=== PATIENT | female | born 1950 | race Caucasian/White ===

== ENCOUNTER 2017-01-03 08:36 | Day surgery (SDC) | payer MEDICARE, OTHER ==
--- NOTE | ~2017-01-03 | EGD ---
EGD REPORT [facility] [address] [id number] NAME: DEANDRA GARCIA : [birth year] STATUS : REG [facility]#: [id number] AGE: 66 ADM/REG DATE : 01/03/17 MR#: [id number] REPORT SERV DATE: 01/03/17 DICTATED BY: CITLALY NICOLE DATE: 01/03/17 REPORT STATUS : Draft [facility]ANS[facility]IBED BY: [facility] DATE: 01/03/17 [facility] Patient Name: Deandra Garcia Date of : 1950 Attending MD: CITLALY NICOLE, Procedure Date No Time: 01/03/2017 Procedure: Upper GI endoscopy Indications: For therapy of esophageal varices Referring MD: Carlos Cameron MD, XIMENA WHITE Medicines: Monitored Anesthesia Care Complications: No immediate complications. Estimated blood loss: None. Procedure: Pre-Anesthesia Assessment: - ASA Grade Assessment: III - A patient with severe systemic disease. After obtaining informed consent, the endoscope was passed under direct vision. Throughout the procedure, the patient's blood pressure, pulse, and oxygen saturations were monitored continuously. The GIF [id number] was introduced through the mouth, and advanced to the second part of duodenum. The upper GI endoscopy was accomplished without difficulty. The patient tolerated the procedure well. Findings: Grade I varices with no bleeding were found in the lower third of the esophagus. These had no stigmata of recent bleeding. The varices had no red janie signs. They were small in largest diameter. The exam of the esophagus was otherwise normal. Portal hypertensive gastropathy was found in the gastric body. The exam of the stomach was otherwise normal. The cardia and gastric fundus were normal on retroflexion. The examined duodenum was normal. Impression: - Non-bleeding grade I esophageal varices. - Portal hypertensive gastropathy. - Normal examined duodenum. Recommendation: - Patient has a contact number available for emergencies. The signs and symptoms of potential delayed complications were discussed with the patient. Return to normal activities tomorrow. Written discharge instructions were provided to the patient. - Return to previous diet. - Continue present medications. - Repeat the upper endoscopy in 1 year for surveillance. EGD REPORT [address] [address] NAME: DEANDRA GARCIA : [birth year] STATUS : REG [facility] PAT#: [id number] AGE: 66 ADM/REG DATE : 01/03/17 MR#: [id number] REPORT SERV DATE: 01/03/17 DICTATED BY: CITLALY NICOLE DATE: 01/03/17 REPORT STATUS : Draft TRANSCRIBED BY: [employer] DATE: 01/03/17 - Return to referring physician. Procedure Code(s): --- Professional --- 45340, Esophagogastroduodenoscopy, flexible, transoral; diagnostic, including collection of specimen(s) by brushing or washing, when performed (separate procedure) Diagnosis Code(s): --- Professional --- I85.00, Esophageal varices without bleeding K76.6, Portal hypertension K31.89, Other diseases of stomach and duodenum CPT copyright 2013 [employer]. All rights reserved. The codes documented in this report are preliminary and upon coarse wire drawer review may be revised to meet current compliance requirements. CITLALY NICOLE, 01/03/2017 10:15 AM Number of Addenda: 0 Note Initiated On: 01/03/2017 9:57 AM Scope Withdrawal Time 0 hours 0 minutes 0 seconds [address] [id number]
[~2017-01-03 08:36] MED LIST: AMARYL2 PO; AMARYL4 PO; AMIT25 PO; ASAB PO; B121000P IM; BL CHROMIUM200 MCG OR; CALTRA600D PO; ENBREL50 MG/ML SC; FISH-EPA1000 MG PO; FOLIC PO; GLUCOPHAGE1000 MG PO; HARD NAILS PO; IRON325 MG PO; K500 PO; LEVOTHYROXIN100 MCG PO; LEVOTHYROXIN112 MCG PO; NEUR300 PO; OXYCOD PO; PLAQ200B PO; SEPTRA SUSPENS100 ML PO; SURBEX/ZINC1 TAB PO; TREXALL5 MG PO; VITAMIN B-122500 MCG SL; VITAMIN D31000 UNIT PO; ZOCOR20 PO
== END 2017-01-03 23:59 | disposition home or self-care (01) ==
LOC: DMU 08:36
PROVIDERS: Internal Medicine Gastroenterology
PROC: 0DJ08ZZ Inspection of Upper Intestinal Tract, Via Natural or Artificial Opening Endoscopic (ICD-10-PCS; principal; 2017-01-03 10:00)
DX: I85.00 Esophageal varices without bleeding (principal); K76.6 Portal hypertension; K31.89 Other diseases of stomach and duodenum; D64.9 Anemia, unspecified; H91.90 Unspecified hearing loss, unspecified ear; E11.9 Type 2 diabetes mellitus without complications; M06.9 Rheumatoid arthritis, unspecified; F32.9 Major depressive disorder, single episode, unspecified; K74.60 Unspecified cirrhosis of liver; E03.9 Hypothyroidism, unspecified; Z90.89 Acquired absence of other organs; Z90.49 Acquired absence of other specified parts of digestive tract; Z90.710 Acquired absence of both cervix and uterus; Z98.51 Tubal ligation status
CPT/HCPCS: 82962